=== PATIENT | female | born 1930 | race Caucasian/White ===

== ENCOUNTER → 2018-06-07 | Outpatient (CLI) | payer MEDICARE, OTHER ==
--- NOTE | 2018-06-07 09:32 | Diagnostic Imaging Report ---
PROCEDURE:US RETROPERITONEAL ( KIDNEY ). COMPARISON:None. INDICATIONS:CYST OF KIDNEY TECHNIQUE: Spicer-scale and color sonographic images of the bilateral kidneys and bladder where obtained in transverse and longitudinal planes. FINDINGS: RIGHT KIDNEY: Measures 8 x 3.9 x 3.7 cm, cortex 1.4 cm Cysts: None. Solid masses: None. Stones: None. Hydronephrosis: None. Echogenicity: Normal. LEFT KIDNEY: Measures 9.2 x 4.4 x 3.9 cm, cortex 1.6 cm Cysts: There is a 1.9 cm anechoic cyst in the superior pole of the left kidney. No Doppler flow is demonstrated. Solid masses: None. Stones: None. Hydronephrosis: None. Echogenicity: Normal. Bladder: Bilateral ureteral jets are noted. CONCLUSION: Simple appearing 1.9 cm left renal cyst. Otherwise unremarkable renal ultrasound. Dictated by: LINA ZHAO M.D. on 06/07/2018 at 9:41 Electronically approved by: LINA ZHAO M.D. on 06/07/2018 at 9:41
== END ==
LOC: US 08:08
PROVIDERS: ATTEND Urology
DX: N28.1 Cyst of kidney, acquired (principal)
CPT/HCPCS: 76770

== ENCOUNTER → 2019-04-07 | Outpatient (CLI) | payer MEDICARE ==
--- NOTE | 2019-04-07 15:47 | Diagnostic Imaging Report ---
EXAM: CT Abdomen and Pelvis WITHOUT intravenous contrast INDICATION: Renal calculi COMPARISON: None. TECHNIQUE: Abdomen and pelvis were scanned utilizing a multidetector helical scanner from the lung base to the pubic symphysis without administration of IV contrast. Coronal and sagittal reformations were obtained. IV CONTRAST: None ORAL CONTRAST: None COMPLICATIONS: None RADIATION DOSE: Total DLP: 331.8 mGy*cm Dose modulation, iterative reconstruction, and/or weight based adjustment of the mA/kV was utilized to reduce the radiation dose to as low as reasonably achievable. FINDINGS: LOWER THORAX: Minimal bibasilar dependent subsegmental atelectasis. Scattered coronary artery atherosclerotic calcifications. Moderate sliding hiatal hernia. HEPATOBILIARY: No focal liver lesions. Calcified gallstone at the gallbladder neck. No CT evidence of cholecystitis. SPLEEN: Diminutive spleen. PANCREAS: No focal masses or ductal dilatation. ADRENALS: 3.5 cm right adrenal nodule containing macroscopic fat consistent with adrenal myelolipoma. No left adrenal nodule. KIDNEYS/URETERS: No hydronephrosis or renal calculi. 2.1 cm anterior left renal upper pole cyst. PELVIC ORGANS/BLADDER: Unremarkable. PERITONEUM / RETROPERITONEUM: No free air or fluid. LYMPH NODES: No lymphadenopathy. VESSELS: Atherosclerotic calcifications of the nonaneurysmal abdominal aorta and major branches. GI TRACT: Colonic diverticulosis. No CT evidence of diverticulitis. No abnormal bowel wall thickening. No bowel obstruction. BONES AND SOFT TISSUES: No acute osseous injury. 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 Mild diffuse osteopenia. Multilevel degenerative changes of the visualized spine. IMPRESSION: Cholelithiasis without CT evidence of cholecystitis. 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 Diverticulosis without CT evidence of diverticulitis. Moderate sliding hiatal hernia. Signed by: Karen Murillo MD on 04/07/2019 3:43 PM
== END ==
LOC: CT 13:18
PROVIDERS: ATTEND Urology
DX: N20.0 Calculus of kidney (principal)
CPT/HCPCS: 74176

== ENCOUNTER → 2020-11-27 | Outpatient (CLI) | payer MEDICARE | LOC: CT 11:26 | PROVIDERS: ATTEND Urology | DX: D44.10 Neoplasm of uncertain behavior of unspecified adrenal gland (principal); N28.1 Cyst of kidney, acquired | CPT/HCPCS: 74176 ==